=== PATIENT | male | born 2000 | race Caucasian/White ===

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

== ENCOUNTER 2021-10-02 10:41 | Emergency (ER) | payer SELFPAY ==
[2021-10-02 10:44] VITALS: BP 139/84; PULSE 82; RESP 20; TEMP 36.3; O2SAT 98; BMI 26.9
--- NOTE | 2021-10-02 11:02 | EDS_ITS ---
HPI History of Present Illness HPI Narrative: Patient presents with pain in his left forearm that occurred 2 days ago after a fall. Patient states he was jumping a fence when he fell and landed on his left forearm. Patient describes his pain as aching. Patient states his pain is worse with movement. Patient admits to some tingling and spasm in his forearm. Patient denies any weakness. Patient denies any head injury or loss of consciousness. Patient denies any other injuries. Chief Complaint: Upper Extremity Injury Informant: patient Occured/Mechanism Mechanism/Context: Yes fall Onset/Context/Timing Onset: Days (2) Context: Sudden Onset Timing: Continuous Quality of Pain: Aching Location: Left forearm Worsened by: Movement Relieved by: Nothing Associated Symptoms Associated Symptoms: Positive for Parasthesia; Negative for Weakness or Loss of Funtion PFSH PFSH Medical History no medical history no medical history Home Medications cephalexin 500 mg capsule 500 mg PO Q6 #40 CAPSULES 10/02/21 [Rx Last Taken Unknown] Allergy/AdvReac Type Severity Reaction Status Date / Time No Known Allergies Allergy Verified 10/02/21 10:53 Surgical History (Updated 10/02/21 @ 11:[address] Dimitri Grover DO) Hx of appendectomy Social History (Updated 10/02/21 @ 11:[address] Dimitri Grover DO) Smoking Status: Current every day smoker tobacco type: cigarettes substance use type: methamphetamine ROS ROS ED Constitutional Constitutional ED: Denies chills or fever(s) Eyes Eyes: Denies blurry vision or change in vision ENT ENT ED: Denies rhinorrhea or sore throat Cardiovascular Cardiovascular: Denies chest pain or palpitations Respiratory/Chest Respiratory/Chest: Denies cough or dyspnea Gastrointestinal Gastrointestinal: Denies nausea or vomiting Genitourinary Genitourinary ED: Denies dysuria or hematuria Musculoskeletal Musculoskeletal: Denies back pain or neck pain Integumentary Reports rash; Denies abscess Neurologic Neurologic: Denies headache(s) or weakness Allergic/Immunologic Allergic/Immunologic ED: Denies mouth swelling or urticaria EXAM Physical Exam Const Vital Signs: 10/02/21 10:44 Temperature 97.3 F L Temperature Source Temporal Pulse Rate 82 Respiratory Rate 20 H Blood Pressure 139/84 H Blood Pressure Mean 102 Pulse Ox 98 Oxygen Delivery Method Room Air Positive well nourished, well developed and unkempt General Appearance ED: unkempt, well developed and NAD HEENT Reports moist mucous membranes Neck full ROM and supple Extremity Extremity Narrative: There is tenderness over the left forearm. There is some mild edema. There is some mild erythema. There is no warmth. There is no vesicles or pustules. There is no obvious deformity. There is good range of motion. Radial pulses are equal bilaterally. Sensation was intact to light touch in the radial, median, and ulnar areas. Strength is 5/5 in the radial, median, and ulnar areas. Neuro oriented x3, CN's II-XII intact bilaterally, moves all extremities, no focal motor deficits and no sensory deficits noted Sensorium / Orientation: alert Motor Exam: strength 5/5 throughout Psych Appearance: unkempt Mood & Affect: anxious MDM MDM MDM Narrative Medical decision making narrative: X-rays of the left forearm were obtained. There are 2 views. On my interpretation, there is no acute fracture. There is no dislocation. There is no soft tissue swelling. Radiologist also interpreted the x-rays and agrees. Patient was advised of his findings. Patient was instructed to take Tylenol or ibuprofen as needed for pain. Patient was instructed to ice and elevate the left forearm. Since there is some mild edema and erythema and the patient adm its to recent IV drug use, I will cover the patient for possible cellulitis in his forearm with Keflex. Patient was instructed to follow-up with a primary care physician in 5 to 7 days for reevaluation. Patient understood and was agreeable with the plan. All questions were answered. Discharge Plan Triage Chief Complaint: Upper Extremity Injury ED Provider: Dimitri Grover Dx/Rx/DC Orders Clinical Impression: Contusion of forearm, left, Cellulitis of forearm, left Instructions: ED Contusion, Upper Extremity Prescriptions: New cephalexin [cephalexin] 500 MG capsule 500 mg PO Q6 Qty: 40 0RF Primary Care Provider: Allen Martínez Referrals: Allen Martínez MD [Primary Care Provider] - 5-7 Days Disposition Disposition: Home, Self Care
--- NOTE | 2021-10-02 11:11 | RAD_ITS ---
STUDY: X-RAY - LEFT RADIUS AND ULNA REASON FOR EXAM: Male, 21 years old. Injury/Pain TECHNIQUE: 2 view(s) of the forearm. COMPARISON: None. FINDINGS: There is no demonstrated soft tissue swelling. Normal visualized radius. Normal visualized ulna. RAD/Forearm 2 Views IMPRESSION: Normal x-ray examination of the radius and ulna. Electronically Signed: Sachi De La Torre MD at 11:25 EDT ,
[2021-10-02] MEDS: Cephalexin 500 MG Capsule PO (11:48)
== END 2021-10-02 12:03 | disposition home or self-care (01) ==
PROVIDERS: Emergency Provider Emergency Medicine; PCP Family Medicine; Visit Provider Emergency Medicine
DX: S50.12XA Contusion of left forearm, initial encounter (principal); L03.114 Cellulitis of left upper limb; F17.210 Nicotine dependence, cigarettes, uncomplicated; W19.XXXA Unspecified fall, initial encounter
CPT/HCPCS: 73090; 99284

== ENCOUNTER 2022-01-15 13:57 | Emergency (ER) | payer MEDICAID, SELFPAY ==
[2022-01-15 13:58] VITALS: BP 143/70; PULSE 76; RESP 16; TEMP 36.8; O2SAT 100; BMI 30.3
--- NOTE | 2022-01-15 14:10 | RAD_ITS ---
STUDY: X-RAY - RIGHT FOOT CLINICAL: Male, 21 years old. fall ROLLED ANKLE AT JEW, PAIN TECHNIQUE: 3 view(s) of the foot. COMPARISON: None. FINDINGS: Normal talus, calcaneus, and tarsal bones. Normal visualized subtalar, talonavicular, calcaneocuboid, tarsal and tarsometatarsal articulations. Normal metatarsi. Normal metatarsophalangeal joint of the great toe. Normal tibial and fibular sesamoid bones. Normal interphalangeal joint of the great toe. Normal phalanges of the great toe. Normal second through fifth metatarsophalangeal joints. Normal interphalangeal joints and phalanges of the lesser toes. The soft tissue structures are unremarkable. There is no demonstrated fracture. RAD/Foot min 3 Views IMPRESSION: Normal x-ray examination of the foot. Electronically Signed: Ronal Salgado MD at 14:53 EST ,
--- NOTE | 2022-01-15 14:10 | RAD_ITS ---
STUDY: X-RAY - RIGHT ANKLE REASON FOR EXAM: Male, 21 years old. injury ROLLED ANKLE AT YAZIDISM, PAIN TECHNIQUE: 3 view(s) of the ankle. COMPARISON: None. FINDINGS: Normal visualized distal tibia and fibula. Normal medial and lateral malleoli. Normal tibiotalar articulation and ankle mortise. Normal visualized talus and calcaneus. The visualized subtalar, talonavicular, calcaneocuboid and tarsal articulations are normal. There is no demonstrated fracture. The soft tissue structures are unremarkable. RAD/Ankle min 3 Views IMPRESSION: Normal x-ray examination of the ankle. Electronically Signed: Ronal Salgado MD at 14:52 EST ,
--- NOTE | 2022-01-15 14:13 | EX.ED.DYSGE1 ---
HPI <BABATUNDE Daley - Last Filed: 01/15/22 15:08> History of Present Illness Chief Complaint: Lower Extremity Injury Narrative Narrative: 21-year-old male with no significant medical history presents to the emergency department with complaints of right foot, right ankle injury. Patient states that he was wrestling with a friend, where he lost his balance rolling his right ankle. Patient has pain to the base of the right foot. Patient states that the pain continued to get worse, as he is here for evaluation. Denies any other injury. PFSH <BABATUNDE Daley - Last Filed: 01/15/22 15:08> [facility] Home Medications cephalexin 500 mg capsule 500 mg PO Q6 #40 CAPSULES 10/02/21 [Rx Last Taken Unknown] Allergy/AdvReac Type Severity Reaction Status Date / Time No Known Allergies Allergy Verified 01/15/22 13:58 Surgical History Hx of appendectomy Social History (Updated 10/02/21 @ 11:[address] Dimitri Grover, ) Smoking Status: Current every day smoker tobacco type: cigarettes substance use type: methamphetamine ROS <BABATUNDE Daley - Last Filed: 01/15/22 15:08> ROS ED ROS Narrative Constitutional: Negative for fever, chills, weight loss, weakness Eyes: Negative for vision loss, vision change, double vision ENT: Negative for any sore throat, ear pain, congestion Cardiovascular: Negative for any chest pain, tightness, palpitations Respiratory: Negative for any cough, sputum production, hemoptysis, dyspnea, dyspnea on exertion, orthopnea Gastrointestinal: Negative for any abdominal pain, nausea, vomiting, diarrhea, constipation, blood in stool, blood in vomit : Negative for any urinary frequency, dysuria, retention, blood in urine Muscle skeletal: Negative for any muscle joint pain, stiffness, myalgias, arthralgias, neck pain, back pain., Positive right foot, right ankle pain Neurological: Negative for any headache, syncope, numbness or tingling, dizziness Skin: Negative for any rashes, lumps, itching, abrasions, lacerations Psychiatric: Negative for any depression, anxiety, stress, suicidal ideation, homicidal ideation Hematologic: Negative for any easy bruising, excessive bruising, easy bleeding Allergies: Negative for any eczema, hives, rash EXAM <BABATUNDE Daley - Last Filed: 01/15/22 15:08> Physical Exam Narrative Exam Narrative: Vital signs reviewed. ly Extremities: Patient has slight edema, ecchymosis to the lateral malleolus. Patient does have pain on palpation to the fifth metatarsal. There is no neurological focal deficit. Pedal pulse easily felt. Patient does have increased pain with dorsiflexion. Patient is able to bear weight however does cause discomfort. Neuro: Cranial nerves II through XII intact, no focal neurological deficits. Skin: Clean dry and intact with no rash, purpura, petechiae, vesicles or pustules. Backs/flank: No CVA tenderness, no midline spinal tenderness, no deformity. Psych: Normal mood and affect. No SI, HI or acute psychosis. Const Vital Signs: 01/15/22 13:58 Temperature 98.3 F Temperature Source Temporal Pulse Rate 76 Respiratory Rate 16 Blood Pressure 143/70 H Blood Pressure Mean 94 Pulse Ox 100 Oxygen Delivery Method Room Air <Dr. Ren Jerome MD - Last Filed: 01/15/22 15:59> Physical Exam Const Vital Signs: 01/15/22 13:58 Temperature 98.3 F Temperature Source Temporal Pulse Rate 76 Respiratory Rate 16 Blood Pressure 143/70 H Blood Pressure Mean 94 Pulse Ox 100 Oxygen Delivery Method Room Air MDM <BABATUNDE Daley - Last Filed: 01/15/22 15:08> MDM Radiography Diagnostic Testing: Clinical Impression(s) from Imaging Studies Ankle X-Ray 01/15/22 14:10 IMPRESSION: Normal x-ray examination of the ankle. Electronically Signed: Ronal Salgado MD at 14:52 EST , Foot X-Ray 01/15/22 14:10 IMPRESSION: Normal x-ray examination of the foot. Electronically Signed: Ronal Salgado MD at 14:53 EST , Treatment and Re-Evaluation Narrative: Patient appears well, patient appears nontoxic, vital signs are stable. Patient presents to the emergency department with complaints of right ankle pain. Patient did receive x-rays of the right foot, right ankle, these were interpreted by ER physician, these were negative examinations, no evidence of fracture or dislocation. Patient was given ibuprofen here. Patient will be given an Aircast here, crutches with instruction. Instructed to ice and elevate. He will use ibuprofen, Tylenol at home. Patient is happy with the plan of care and is stable for discharge <Dr. Ren Jerome MD - Last Filed: 01/15/22 15:59> MDM MDM Narrative Medical decision making narrative: Seen and evaluated independently and in conjunction with [employer]. Agree with notes above unless documented otherwise. Twisted right ankle unable to bear weight at the time of injury and now. Tender at the lateral right malleolus, soft tissues anterior to this, nontender at the base of the fifth metatarsal, medial malleolus, fibular head. Limited range of motion due to pain. Three-view x-ray of the right foot and 3 view x-ray of the right ankle all negative on my interpretation, radiology in agreement. We will treat as a sprain, crutches given since he is having trouble bearing weight in addition to an Aircast. Radiography Diagnostic Testing: Clinical Impression(s) from Imaging Studies Ankle X-Ray 01/15/22 14:10 IMPRESSION: Normal x-ray examination of the ankle. Electronically Signed: Ronal Salgado MD at 14:52 EST , Foot X-Ray 01/15/22 14:10 IMPRESSION: Normal x-ray examination of the foot. Electronically Signed: Ronal Salgado MD at 14:53 EST , Discharge Plan Triage Chief Complaint: Lower Extremity Injury ED Midlevel Provider: Kaushal Lowery ED Provider: Ren Jerome Dx/Rx/DC Orders Clinical Impression: Foot sprain, Ankle sprain Instructions: ED Foot Sprain, ED Ankle Sprain (Adult) Prescriptions: No Action cephalexin [cephalexin] 500 MG capsule 500 mg PO Q6 Qty: 40 0RF Primary Care Provider: Care Physician,No Primary Referrals: Allen Martínez MD [Non-Staff] - Activity Restrictions/Additional Instructions: Please ensure that you ice and elevate. Disposition Disposition: Home, Self Care Discharge Date/Time: 01/15/22 15:28
[2022-01-15] MEDS: Ibuprofen 400 MG Tablet 800 MG PO (14:22)
== END 2022-01-15 15:28 | disposition home or self-care (01) ==
PROVIDERS: Emergency Provider Emergency Medicine; Visit Provider Emergency Medicine
DX: S93.401A Sprain of unspecified ligament of right ankle, initial encounter (principal); S93.601A Unspecified sprain of right foot, initial encounter; F17.210 Nicotine dependence, cigarettes, uncomplicated; X50.1XXA Overexertion from prolonged static or awkward postures, initial encounter
CPT/HCPCS: 73610; 73630; 99284

== ENCOUNTER 2022-10-04 17:29 | Outpatient (REF) | payer SELFPAY ==
[2022-10-04 17:29] VITALS: BP 149/94; PULSE 83; RESP 16; TEMP 36.6; O2SAT 100; BMI 29.2
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
--- NOTE | 2022-10-04 18:14 | CT_ITS ---
EXAM: CT HEAD WITHOUT INTRAVENOUS CONTRAST CLINICAL INDICATION: head injury TECHNIQUE: Multiple axial images were obtained of the head without intravenous contrast. This CT exam was performed using one or more of the following dose reduction techniques: automated exposure control, adjustment of the mA and/or kV according to patient size, and/or use of iterative reconstruction technique. RADIATION DOSE: CTDIvol = 44.99 mGy, DLP = 880.47 mGy-cm COMPARISON: 5.29.17 FINDINGS: BRAIN AND EXTRA-AXIAL SPACES: Unremarkable. No intra- or extra-axial hemorrhage. No evidence of acute infarct. No intracranial mass or mass effect. There is preservation of the gallegos/white matter interface. Posterior fossa structures are unremarkable. Ventricles are appropriate for age. No hydrocephalus. Basal cisterns are patent. BONES/JOINTS: Unremarkable. No discrete lytic or blastic abnormalities. SINUSES: Unremarkable as visualized. Clear. MASTOID AIR CELLS: Unremarkable. Clear. ORBITS: Visualized globes, extraocular muscles, optic nerves and retrobulbar fat appear unremarkable. CT/Brain/Head without Contrast IMPRESSION: Negative head/brain CT without intravenous contrast. Electronically Signed: Brice Noguera MD at 18:52 EDT ,
[2022-10-04] MEDS: Diphth,Pertuss(Acell),Tet Vac 0.5 ML Vial IM (18:28)
[2022-10-04] MEDS: Lidocaine 1% (20 ml mdv) 20 ML Vial 4 ML INFILT (18:28)
[2022-10-04 19:10] LABS: Absolute Lymphocyte Count 2.09 X10^3/uL (0.83-4.51); Absolute Neutrophil Count 9.5 X10^3/uL (2.0-7.7); Basophil# 0.07 X10^3/uL; Basophil% 0.6 % (0-1); Eosinophil# 0.24 X10^3/uL; Eosinophils% 1.9 % (0-5); Hematocrit 45.7 % (40-54); Hemoglobin 15.8 g/dL (13.0-16.5); Lymphocyte # 2.09 X10^3/ul (0.83-4.51); Lymphocyte % 16.5 % (19-41); Mean Corp Hgb Conc 34.6 g/dL (32-36); Mean Corpuscular Hgb 29.9 pg (27.0-32.0); Mean Corpuscular Volume 86.6 fL (80-94); Mean Platelet Vol. 9.9 fl (6.2-12.0); Monocyte# 0.67 X10^3/uL; Monocyte% 5.3 % (0-10); NRBC Flagged by Analyzer 0 % (0-5); Neutrophil # 9.54 X10^3/uL (2.7-7.7); Neutrophil % 75.3 % (47-70); Platelet Count 249 K/mm3 (150-450); RBC Distribution Width CV 12.2 % (11.6-14.6); RBC Distribution Width SD 38.3 fl (35.1-43.9); Red Blood Count 5.28 M/mm3 (4.6-6.2); White Blood Count 12.7 K/mm3 (4.4-11.0)
[2022-10-04 19:24] LABS: Anion Gap 3 (5-15); BUN 14 mg/dL (7-18); BUN/Creat Ratio 14.8 RATIO (10-20); Calcium,Total 9.3 mg/dL (8.5-10.1); Chloride 106 mmol/L (98-107); Creatinine, Serum 0.95 mg/dL (0.70-1.30); EST Glomerular Filtration Rate 106 mL/min (>60); Est Glom Filt Rate - Afr Amer 128 mL/min (>60); Estimated Creatinine Clearance 141.81 ml/min; Glucose 98 mg/dL (74-106); Potassium 3.9 mmol/L (3.5-5.1); Sodium Level 139 mmol/L (136-145)
[2022-10-04 19:31] LABS: Alcohol, Blood (Medical)-Serum < 3.0 mg/dL
[2022-10-04 20:19] LABS: Amphetamine Urine VISTA NEGATIVE (<1000 ng/mL); Barbiturate Urine VISTA NEGATIVE (< 200 ng/mL); Benzodiazepine Urine VISTA NEGATIVE (< 200 ng/mL); Cocaine Urine VISTA NEGATIVE (< 300 ng/mL); Ecstacy Urine VISTA NEGATIVE (< 500 ng/mL); Methadone Urine VISTA NEGATIVE (< 300 ng/mL); PCP Urine VISTA NEGATIVE (< 25 ng/mL); THC Urine VISTA NEGATIVE (< 50 ng/mL); Vista UDS pH Range 6
== END 2022-10-04 19:34 | disposition home or self-care (01) ==
LOC: ED 17:29
PROVIDERS: Visit Provider Emergency Medicine
DX: S01.511A Laceration without foreign body of lip, initial encounter (principal); R45.851 Suicidal ideations; W18.09XA Striking against other object with subsequent fall, initial encounter; Y92.143 Cell of prison as the place of occurrence of the external cause
CPT/HCPCS: 36415; 70450; 80048; 80307; 82077; 85025; 90471; 90715; 99284